=== PATIENT | female | born 1995 | race African-American/Black ===

== ENCOUNTER 2023-01-27 12:07 | Emergency (ER) | payer MEDICAID ==
[~2023-01-27] VITALS: Ht 160 cm; Wt 75.0 kg
[2023-01-27 12:21] VITALS: BP 115/84; PULSE 66; RESP 20; TEMP 97.6; O2SAT 100
[2023-01-27] MEDS ORDERED: TETANUS, DIPHTHERIA, PERTUSSIS VAC/PF 0.5ML (>10YR OLD) IM ONE (12:45)
[2023-01-27] MEDS ORDERED: LIDOCAINE HCL/PF 1% 10 MG/ML 5ML VIAL INFIL ONE (12:45)
[2023-01-27] MEDS ORDERED: BACITRACIN ZINC OINT UDPKT TOP ONE (12:45)
[2023-01-27] MEDS ORDERED: BO1 TP (13:32)
== END 2023-01-27 14:14 | disposition home or self-care (01) ==
LOC: ER 12:07
DX: S61.412A Laceration without foreign body of left hand, initial encounter (principal); W26.0XXA Contact with knife, initial encounter; Y93.89 Activity, other specified; Y92.89 Other specified places as the place of occurrence of the external cause; Y99.8 Other external cause status
CPT/HCPCS: 90715; 12001; 90471; 99283; J3490; Z7610

== ENCOUNTER 2023-03-31 14:36 | Emergency (ER) | payer MEDICAID ==
[~2023-03-31] VITALS: Ht 167.6 cm; Wt 72.0 kg
[~2023-03-31 14:36] MED LIST: BO1 TP
[2023-03-31 14:40] VITALS: O2SAT 100
[2023-03-31] MEDS ORDERED: ONDANSETRON HCL 4MG/2ML INJ IV STA (14:44)
[2023-03-31] MEDS ORDERED: SODIUM CHLORIDE 0.9% 1,000 ML IV ONE (14:45)
[2023-03-31 15:19] LABS: BASOPHILS % 0.9 % (0.0-2.0); EOSINOPHILS % 1.7 % (0.0-5.0); HEMATOCRIT. 37.8 % (36.0-48.0); HEMOGLOBIN. 12.2 g/dL (12.0-16.0); LYMPHOCYTES % 40.2 % (20.0-50.0); MEAN CORPUSCULAR HEMOGLOBIN 26.9 pg (28.0-32.0); MEAN CORPUSCULAR HGB CONC 32.4 g/dL (31.0-37.0); MEAN CORPUSCULAR VOLUME 83.2 fL (81.0-99.0); MEAN PLATELET VOLUME 8.2 fl (7.4-10.4); MONOCYTES % 7.1 % (2.0-8.0); NEUTROPHILS % 50.1 % (40.0-76.0); PLATELET 285 x1000/uL (130-400); RED BLOOD CELL COUNT 4.55 mill/uL (4.2-5.4); RED CELL DISTRIBUTION WIDTH 13.9 % (11.6-14.6)
[2023-03-31 15:25] LABS: INDEX HEMOLYSI 1 (1-3); INDEX ICTERIC 1 (1-4); INDEX LIPEMIC 1 (1-3)
[2023-03-31 15:34] LABS: HCG SCREEN NEGATIVE
[2023-03-31 15:41] LABS: ETHANOL BLOOD < 10 mg/dL (<10); THYROID STIMULATING HORMONE 0.78 uIU/mL (0.36-3.74)
[2023-03-31 15:45] LABS: ALANINE AMINOTRANSFERASE 19 IU/L (13-61); ALBUMIN 3.5 g/dL (3.4-5.0); ASPARTATE AMINOTRANSFERASE 16 IU/L (15-37); BILIRUBIN TOTAL 0.2 mg/dL (0.1-1.0); CARBON DIOXIDE 28 mEq/L (21-32); CHLORIDE 109 mEq/L (98-107); CREATININE 0.8 mg/dL (0.6-1.3); GLUCOSE 80 mg/dL (70-105); PROTEIN TOTAL 7.4 g/dL (6.0-8.3); SODIUM 140 mEq/L (136-145); UREA NITROGEN BLOOD 8 mg/dL (7-21)
[2023-03-31 16:02] VITALS: BP_DIAS 75
[2023-03-31] MEDS ORDERED: ONDA4TAB50 MT (16:36)
[2023-03-31 17:07] VITALS: BP_SYST 110; PULSE 68; RESP 20; TEMP 98.3
== END 2023-03-31 17:08 | disposition home or self-care (01) ==
LOC: ER 15:19
DX: K52.9 Noninfective gastroenteritis and colitis, unspecified (principal); R55 Syncope and collapse
CPT/HCPCS: 80053; 80320; 84703; 83605; 83690; 84443; 85025; 86850; 86900; 86901; 36415; 93005; 96361; 96374; 99284; J2405; J7030; Z7610 ×2; G0480